=== PATIENT | male | born 1935 | race Caucasian/White ===

== ENCOUNTER → 2019-08-23 | Outpatient (CLI) | payer OTHER ==
[~2019-08-23] MED LIST: CARV3.1210 PO; CONTRAST GIVEN. MC PRN; FINA5TAB4 PO; IOHEXOL 240 MG/ML 50ML VIAL. PO ONE
--- NOTE | 2019-08-23 11:11 | KCIC ---
CT ABD PEL W/ORAL CONTRST ONLY dated 08/23/2019 12:00 AM Indication: Chronic kidney disease renal cysts. Left flank pain. Comparison: No comparison is available. Technique: Contiguous axial imaging the abdomen and pelvis performed without the administration of IV contrast. Oral contrast was used. One or more of the following individualized dose reduction techniques were utilized for this examination: 1. Automated exposure control 2. Adjustment of the mA and/or kV according to patient size 3. Use of iterative reconstruction technique Findings: Limited images of lung bases are clear. Heart size upper limits of normal. No pleural or pericardial effusion. There is minimal linear scar or atelectasis at both lung bases. Solid abdominal viscera not well evaluated in the absence of contrast material. There is a 13 cm low-density focus within the right lobe liver with Hounsfield value of 1, consistent with cyst. Liver is otherwise homogeneous. No biliary ductal dilatation. There is some layering hyperdensity in the gallbladder lumen suggesting sludge. The spleen is normal in size. Pancreas, adrenal glands are unremarkable. There are low-density foci scattered throughout each kidney consistent with cysts. The largest lesion is located at the right kidney upper pole and measures up to 6.8 cm. No definite solid mass. No hydronephrosis. No calcific renal or ureteral stone. Partially opacified GI tract normal in caliber and contour. No focal bowel wall thickening. No free fluid or lymphadenopathy. Abdominal aorta normal in caliber. The appendix is not clearly identified. No inflammatory changes in the mesentery. Images the pelvis show moderately enlarged prostate gland. The urinary bladder is nondistended, however there appears to be at least moderate grade wall thickening. Small amount of free pelvic fluid. There are mildly enlarged bilateral inguinal lymph nodes measuring up to 1.9 cm short axis on the right. Borderline enlarged iliac chain lymph nodes. Bone windows show no acute findings. Mild multilevel spondylosis. IMPRESSION: 1. Prostatomegaly. 2. Diffuse wall thickening of the urinary bladder, nonspecific. Consider acute or chronic cystitis or intermittent bladder outlet obstruction. 3. Bilateral inguinal lymphadenopathy, nonspecific. 4. Small amount of free pelvic fluid, nonspecific. 5. Sludge-filled gallbladder. 6. Bilateral renal cysts and large hepatic cyst. Electronically signed by: Alexandro Goldsmith MD (08/23/2019 11:08 AM) [facility]
== END | disposition home or self-care (01) ==
LOC: KCIC CT 08:40
PROVIDERS: ATTEND Physician Assistant Medical
DX: K76.89 Other specified diseases of liver (principal); N28.1 Cyst of kidney, acquired; N40.0 Benign prostatic hyperplasia without lower urinary tract symptoms; N32.89 Other specified disorders of bladder; R59.0 Localized enlarged lymph nodes; M47.819 Spondylosis without myelopathy or radiculopathy, site unspecified; N18.3 Chronic kidney disease, stage 3 (moderate)
CPT/HCPCS: 74176; Q9966

== ENCOUNTER → 2021-06-15 | Outpatient (CLI) | payer OTHER ==
[~2021-06-15] MED LIST changes: -CONTRAST GIVEN. MC PRN; -IOHEXOL 240 MG/ML 50ML VIAL. PO ONE; +REGADENOSON 0.4 MG/5 ML DISP.SYRIN. IV ONE
--- NOTE | 2021-06-16 14:22 | RAD ---
MR#: [id number] Date of Study: 06/15/2021 Ordering Physician: CINDY MARCELO, Referring Physician: FRAN CALLEJAS Tech: RT Raudel (R) (N) APPROVED REPORT Test Type: Pharmacological Stress Nurse/Tech: Chata Ren RN Test Indications: chest pressure Cardiac History: Hypertension Medications: See Electronic Medical Record Medical History: See Electronic Medical Record Resting ECG: SB with 1st degree AV block & PVC Resting Heart Rate: 52 bpm Resting Blood Pressure: 156/73mmHg Pretest Chest Pain: No chest pain Nurse/Tech Notes S1,S2 and lungs clear to auscultation. Patient took his Carvedilol last night so test converted to Le xiscan(pharmacological), patient had planned on doing treadmill. Consent: The procedure was explained to the patient in lay terms. Informed consent was witnessed. Issac eout was entered into [employer]. History and Stress Test performed by RT Raudel (R) (N) Pharm. Details Pharmacologic stress testing was performed using 0.4mg per 5ml of regadenoson given intravenously ove r 7-10 seconds. Stress Symptoms No chest pain or symptoms. POST EXERCISE Reason for Termination: Infusion complete Target HR: No Max HR: 87 bpm 76% of Maximum Predicted HR: 114 bpm Max Blood Pressure: 164/71mmHg Blood Pressure response to exercise: Normal blood pressure response during stress. Heart Rate response to exercise: WNL Chest Pain: No. Arrhythmia: Yes. PVC ST Change: No. INTERPRETATION Stress EKG Conclusion: The resting EKG shows a sinus rhythm with ST-T wave changes. The stress EKG showed no significant change from baseline. Abnormal baseline EKG but no EKG evidence of stress-induced ischemia. Imaging Protocol IMAGE PROTOCOL: Rest Tc-99m/stress Tc-99m 1 day Rest: Stress: Viability: Radiopharm.Tc99m [id number] Sestamibi [id number] 30mCi Duration 15min. 15min. Img Date 06/15/2021 06/15/2021 Inj-Img [id number]. 65min. Rest Admin Site:IV - Right AntecubitalAdministrator:RT Raudel (R)(N) Stress Admin Site: IV - Right AntecubitalAdministrator: RT Raudel (R)(N) STRESS DATA End Diast. Vol.159.0mlAv. Heart Rate78.0bpm End Syst. Vol.46.0mlCO Index BSA8.9L/min Myocardial Pzwe761.0gEject. Nueoqybi68.0% Stress Rates Pk. Fill Rate3.45EDV/secLVtime Pk. Fill 179.69msec Pk. Empty Rate3.55ESV/secLVtime Pk. Yhsmr319.93msec 08/09 Pk. Fill1.28EDV/sec Stress Scores Regional WT0.00Summed WT5.00 Regional WM0.00Summed WM0.00 LV Perfusion The stress scans showed no significant defects. The rest scans showed no significant defects. Nuclear imaging shows no reversible ischemia or infarct. Wall Motion Left ventricular ejection fraction is greater than 70% with no regional wall motion abnormalities. LV Perf. Quant 17 Seg. SSS1.00 17 Seg. SRS1.00 17 Seg. SDS0.00 Stress Defect Extent (% LAD)0.00Rest Defect Extent (% LAD)0.00Rev. Defect Extent (% LAD)0.00 Stress Defect Extent (% LCX) 0.00Rest Defect Extent (% LCX)47.50Rev. Defect Extent (% LCX)0.00 Stress Defect Extent (% RCA)0.00Rest Defect Extent (% RCA)0.00Rev. Defect Extent (% RCA)0.00 Stress Defect Extent (% REBEKAH)0.00Rest Defect Extent (% REBEKAH)8.30Rev. Defect Extent (% REBEKAH)0.00 Conclusion 1. Abnormal baseline EKG but no EKG evidence of stress-induced ischemia. 2. Nuclear imaging shows no reversible ischemia or infarct. 3. Intact LV systolic function with an ejection fraction of greater than 70%. 4. Low risk Lexiscan nuclear stress test. Signed by : Cindy Marcelo MD Electronically Approved : 06/16/2021 14:22:10
== END ==
LOC: NM 09:35
PROVIDERS: ATTEND Internal Medicine Cardiovascular Disease
DX: R94.31 Abnormal electrocardiogram [ECG] [EKG] (principal); R07.89 Other chest pain
CPT/HCPCS: 78452; 93017; A9500; J2785